=== PATIENT | male | born 1965 | race Caucasian/White ===

== ENCOUNTER 2018-05-25 15:20 | Emergency (ER) | payer OTHER ==
[~2018-05-25] VITALS: Ht 180.3 cm; Wt 97.5 kg
[2018-05-25] MEDS ORDERED: SYNTHROID75 MCG (15:47)
[2018-05-25] MEDS ORDERED: GLUCOPHAGE XR500 MG (15:48)
[2018-05-25] MEDS ORDERED: BENAZEPRIL HCL20 MG (16:33)
== END 2018-05-25 19:54 | disposition home or self-care (01) ==
LOC: ER 15:20 → CPU-OBS 15:39 → ER 19:54
DX: R07.89 Other chest pain (principal); I10 Essential (primary) hypertension
CPT/HCPCS: G0378; G0379; 93005